=== PATIENT | female | born 1960 ===

== ENCOUNTER 2022-07-26 08:29 | Outpatient (CLI) | payer OTHER | END 2022-07-26 08:33 | disposition home or self-care (01) | LOC: SONOGRAMA 08:29 | PROVIDERS: ATTEND Pathology Anatomic Pathology & Clinical Pathology | DX: E07.89 Other specified disorders of thyroid (principal); E07.9 Disorder of thyroid, unspecified; D11.0 Benign neoplasm of parotid gland ==